=== PATIENT | female | born 1950 | race Caucasian/White ===

== ENCOUNTER 2022-06-12 09:28 | Inpatient (IN) ==
[2022-06-12] MEDS ORDERED: DILTIAZEM 50 MG/10 ML VIAL IV STA (09:56)
[2022-06-12] MEDS ORDERED: DILTIAZEM 100 MG VIAL.ADD IV ONE (09:59)
[2022-06-12] MEDS ORDERED: DILTIAZEM 25 MG/5 ML VIAL IV ONE (09:59)
[2022-06-12 10:06] LABS: Basophils % 0.2 % (0.0-0.8); Eosinophils % 0.3 % (0.00-10.9); Hematocrit 46.9 VOL% (35.7-47.0); Hemoglobin 15.2 GM/DL (12.0-16.0); Immature Granulocytes % 0.6 %; Immature Granulocytes Absolute 0.07 #; Lymphocytes # 2.1 10*3/uL (1.4-4.0); Lymphocytes % 17.3 % (21.3-54.2); Mean Corpuscular HGB Conc 32.4 GM/DL (32-36); Mean Corpuscular Volume 87.5 FL (87-102); Mean Platelet Volume 10.5 FL (9.6-12.0); Monocytes # 1.1 10*3/uL (0.11-0.8); Monocytes % 8.7 % (1.7-12.7); Neutrophils % 72.9 % (38.7-73.9); Platelet Count 285 T/CUMM (130-400); Red Blood Count 5.36 MC/CUMM (3.8-5.5); Red Cell Distribution Width 13.1 % (9.3-17.3); White Blood Count 12.2 T/CUMM (4-12)
[2022-06-12 10:15] LABS: PT Patient Result 11.5 SECS (10.1-12.1)
[2022-06-12] MEDS: DILTIAZEM INJ 100 MG in SODIUM CHLORIDE 0.9% 100 ML IV SCH (10:17)
[2022-06-12 10:34] LABS: Albumin 3.6 G/DL (3.4-5.0); Bilirubin,Total 0.9 MG/DL (0.20-1.00); Calcium 9.1 MG/DL (8.5-10.1); Osmolality,Calculated 267.4 MOS/KG (273-304); Potassium 5.1 MMOL/L (3.5-5.1); Thyroid Stimulating Hormone 3.04 uIU/ml (0.358-3.74); Total Protein 6.8 G/DL (6.4-8.2)
[2022-06-12 12:09] LABS: Bilirubin,Urine Negative (Negative); Blood, Urine Negative (Negative); Glucose,Urine (UA) Negative (Negative); Ketones,Urine Negative (Negative); Mucus,Urine Occasional /LPF (Occasional); Nitrite,Urine Negative (Negative); Protein,Urine Negative (Negative); RBC,Urine 1 /HPF (0-4); Squamous Epithelial Cell,Urine Occasional /HPF (0-10); Urine Appearance Clear (Clear); Urine Color Yellow (Yellow); Urine Urobilinogen 0.2 eU/dL (<2.0)
[2022-06-12 12:21] LABS: Barbiturates Screen,Urine Negative (Negative); Benzodiazepines Screen,Urine Negative (Negative); Cannabinoid Screen,Urine Negative (Negative); Opiate Screen,Urine Negative (Negative); Phencyclidine Screen,Urine Negative (Negative)
[2022-06-12] MEDS ORDERED: MAGNESIUM SULF RIDER 4 GM/100 ML PREMIX IV PRN (12:29)
[2022-06-12] MEDS ORDERED: hydrALAZINE 20 MG/1 ML VIAL IV PRN (12:29)
[2022-06-12] MEDS ORDERED: MAGNESIUM SULF RIDER 2 GM/50 ML PREMIX IV PRN (12:29)
[2022-06-12] MEDS ORDERED: ONDANSETRON 4 MG/2 ML VIAL IV PRN (12:29)
[2022-06-12] MEDS ORDERED: MORPHINE 2 MG/1 ML SYRINGE IV PRN (12:29)
[2022-06-12] MEDS ORDERED: ZALEPLON 5 MG CAPSULE PO PRN (12:29)
[2022-06-12] MEDS ORDERED: BISACODYL 5 MG TABLET PO PRN (12:29)
[2022-06-12] MEDS ORDERED: guaiFENesin/DM ER 600-30 MG TABLET PO PRN (12:29)
[2022-06-12] MEDS ORDERED: diphenhydrAMINE CAP 25 MG CAPSULE PO PRN (12:29)
[2022-06-12] MEDS ORDERED: DIGOXIN 0.5 MG/2 ML AMP IV ONE (12:35)
[2022-06-12] MEDS ORDERED: FUROSEMIDE 20 MG/2 ML VIAL IV STA (12:54)
[2022-06-12] MEDS ORDERED: FUROSEMIDE 40 MG/4 ML VIAL IV STA (13:01)
[2022-06-12] MEDS ORDERED: LEVALBUTEROL 0.63 MG/3 ML NEB RESP TX STA (13:02)
[2022-06-12] MEDS: DILTIAZEM 30 MG TABLET PO SCH ×2 (13:26→19:10)
[2022-06-12] MEDS: APIXABAN 5 MG TABLET PO SCH ×2 (13:26→22:00)
[2022-06-12] MEDS: LEVOFLOXACIN INJ 500 MG/100 ML PREMIX IV SCH (13:55)
[2022-06-12] MEDS: ASCORBIC ACID 500 MG TABLET PO SCH (22:00)
[2022-06-13] MEDS: DILTIAZEM 30 MG TABLET PO SCH ×5 (00:39→23:52)
[2022-06-13 04:06] LABS: Basophils % 0.1 % (0.0-0.8); Eosinophils # 0.1 10*3/uL (0.0-0.87); Eosinophils % 0.6 % (0.00-10.9); Hematocrit 40.8 VOL% (35.7-47.0); Hemoglobin 13.5 GM/DL (12.0-16.0); Immature Granulocytes % 0.4 %; Immature Granulocytes Absolute 0.04 #; Lymphocytes # 1.9 10*3/uL (1.4-4.0); Lymphocytes % 20.9 % (21.3-54.2); Mean Corpuscular HGB Conc 33.1 GM/DL (32-36); Mean Corpuscular Volume 87.4 FL (87-102); Mean Platelet Volume 10.3 FL (9.6-12.0); Monocytes # 0.9 10*3/uL (0.11-0.8); Monocytes % 9.4 % (1.7-12.7); Neutrophils % 68.6 % (38.7-73.9); Platelet Count 232 T/CUMM (130-400); Red Blood Count 4.67 MC/CUMM (3.8-5.5); White Blood Count 9.3 T/CUMM (4-12)
[2022-06-13 04:30] LABS: Calcium 8.3 MG/DL (8.5-10.1); Osmolality,Calculated 281.3 MOS/KG (273-304); Potassium 3.4 MMOL/L (3.5-5.1)
[2022-06-13 04:33] LABS: Bilirubin,Total 0.8 MG/DL (0.20-1.00); Calcium 8.6 MG/DL (8.5-10.1); Osmolality,Calculated 274.8 MOS/KG (273-304); Potassium 3.2 MMOL/L (3.5-5.1); Risk Ratio 2.68; Total Protein 5.8 G/DL (6.4-8.2); VLDL Cholesterol 17.6 MG/DL
[2022-06-13] MEDS ORDERED: POTASSIUM CHLORIDE 20 MEQ TABLET PO ONE (08:53)
[2022-06-13] MEDS: APIXABAN 5 MG TABLET PO SCH ×2 (09:09→22:08)
[2022-06-13] MEDS: PANTOPRAZOLE 40 MG TABLET PO SCH (09:09)
[2022-06-13] MEDS: ASCORBIC ACID 500 MG TABLET PO SCH ×2 (09:09→22:08)
[2022-06-13] MEDS ORDERED: AMIODARONE INJ 150 MG in DEXTROSE 5% 100 ML IV ONE (10:11)
[2022-06-13] MEDS ORDERED: AMIODARONE INJ 450 MG in DEXTROSE 5% 241 ML IV SCH (10:30)
[2022-06-13] MEDS: DILTIAZEM INJ 100 MG in SODIUM CHLORIDE 0.9% 100 ML IV SCH (11:14)
[2022-06-13] MEDS: FUROSEMIDE 20 MG TABLET PO SCH (11:37)
[2022-06-13] MEDS: SPIRONOLACTONE 25 MG TABLET PO SCH (11:37)
[2022-06-13] MEDS: METOPROLOL SUCCINATE XL 25 MG TABLET PO SCH (11:37)
[2022-06-13] MEDS ORDERED: ALBUTEROL/IPRATROPIUM 3 ML NEB RESP TX PRN (13:04)
[2022-06-13] MEDS: LEVOFLOXACIN INJ 500 MG/100 ML PREMIX IV SCH (13:48)
[2022-06-13] MEDS: AMIODARONE INJ 450 MG in DEXTROSE 5% 241 ML IV SCH ×2 (17:52→23:52)
[2022-06-14 05:19] LABS: Basophils % 0.2 % (0.0-0.8); Eosinophils # 0.3 10*3/uL (0.0-0.87); Eosinophils % 3.1 % (0.00-10.9); Hematocrit 40.5 VOL% (35.7-47.0); Immature Granulocytes % 0.6 %; Immature Granulocytes Absolute 0.05 #; Lymphocytes # 2.2 10*3/uL (1.4-4.0); Lymphocytes % 25.6 % (21.3-54.2); Mean Corpuscular HGB Conc 32.1 GM/DL (32-36); Mean Corpuscular Volume 89.6 FL (87-102); Mean Platelet Volume 10.4 FL (9.6-12.0); Monocytes # 0.8 10*3/uL (0.11-0.8); Monocytes % 9.4 % (1.7-12.7); Neutrophils % 61.1 % (38.7-73.9); Platelet Count 234 T/CUMM (130-400); Red Blood Count 4.52 MC/CUMM (3.8-5.5); Red Cell Distribution Width 13.1 % (9.3-17.3); White Blood Count 8.7 T/CUMM (4-12)
[2022-06-14 05:53] LABS: Calcium 8.4 MG/DL (8.5-10.1); Osmolality,Calculated 281.1 MOS/KG (273-304); Potassium 3.9 MMOL/L (3.5-5.1)
[2022-06-14] MEDS: DILTIAZEM 30 MG TABLET PO SCH ×3 (08:24→18:09)
[2022-06-14] MEDS: FUROSEMIDE 20 MG TABLET PO SCH (08:25)
[2022-06-14] MEDS: SPIRONOLACTONE 25 MG TABLET PO SCH (08:25)
[2022-06-14] MEDS: APIXABAN 5 MG TABLET PO SCH ×2 (08:25→20:32)
[2022-06-14] MEDS: ASCORBIC ACID 500 MG TABLET PO SCH ×2 (08:26→20:32)
[2022-06-14] MEDS: METOPROLOL SUCCINATE XL 25 MG TABLET PO SCH (08:26)
[2022-06-14] MEDS: PANTOPRAZOLE 40 MG TABLET PO SCH (08:26)
[2022-06-14] MEDS ORDERED: FUROSEMIDE 20 MG/2 ML VIAL IV ONE (09:58)
[2022-06-14] MEDS: FLUTICASONE 50 MCG NASAL SPRAY 16 GM BOTTLE BOTH NARES SCH ×2 (11:55→20:32)
[2022-06-14] MEDS: AMIODARONE 200 MG TABLET PO SCH ×2 (11:59→20:32)
[2022-06-14] MEDS ORDERED: DIGOXIN 0.5 MG/2 ML AMP IV ONE ×2 (12:15→19:30)
[2022-06-14] MEDS: AMIODARONE INJ 450 MG in DEXTROSE 5% 241 ML IV SCH (16:51)
[2022-06-14] MEDS: LEVOFLOXACIN INJ 500 MG/100 ML PREMIX IV SCH (19:25)
[2022-06-15] MEDS: DILTIAZEM 30 MG TABLET PO SCH ×2 (01:25→08:37)
[2022-06-15] MEDS: AMIODARONE INJ 450 MG in DEXTROSE 5% 241 ML IV SCH (03:30)
[2022-06-15 06:13] LABS: Basophils % 0.3 % (0.0-0.8); Eosinophils # 0.3 10*3/uL (0.0-0.87); Eosinophils % 2.8 % (0.00-10.9); Hematocrit 40.4 VOL% (35.7-47.0); Hemoglobin 13.1 GM/DL (12.0-16.0); Immature Granulocytes % 0.7 %; Immature Granulocytes Absolute 0.07 #; Lymphocytes # 2.3 10*3/uL (1.4-4.0); Lymphocytes % 21.9 % (21.3-54.2); Mean Corpuscular HGB Conc 32.4 GM/DL (32-36); Mean Platelet Volume 10.6 FL (9.6-12.0); Monocytes % 9.9 % (1.7-12.7); Neutrophils % 64.4 % (38.7-73.9); Platelet Count 239 T/CUMM (130-400); Red Blood Count 4.49 MC/CUMM (3.8-5.5); Red Cell Distribution Width 13.2 % (9.3-17.3); White Blood Count 10.5 T/CUMM (4-12)
[2022-06-15 06:46] LABS: Calcium 8.2 MG/DL (8.5-10.1); Osmolality,Calculated 274.7 MOS/KG (273-304); Potassium 3.4 MMOL/L (3.5-5.1)
[2022-06-15] MEDS ORDERED: FUROSEMIDE 40 MG TABLET PO SCH (09:00)
[2022-06-15] MEDS: FLUTICASONE 50 MCG NASAL SPRAY 16 GM BOTTLE BOTH NARES SCH ×2 (09:50→21:01)
[2022-06-15] MEDS: SPIRONOLACTONE 25 MG TABLET PO SCH (09:53)
[2022-06-15] MEDS: ASCORBIC ACID 500 MG TABLET PO SCH ×2 (09:53→20:59)
[2022-06-15] MEDS: PANTOPRAZOLE 40 MG TABLET PO SCH (09:53)
[2022-06-15] MEDS: APIXABAN 5 MG TABLET PO SCH ×2 (09:53→20:59)
[2022-06-15] MEDS: METOPROLOL SUCCINATE XL 25 MG TABLET PO SCH (09:53)
[2022-06-15] MEDS: DILTIAZEM CD 240 MG CAPSULE PO SCH (09:53)
[2022-06-15] MEDS: AMIODARONE 200 MG TABLET PO SCH ×2 (09:54→20:59)
[2022-06-15] MEDS ORDERED: POTASSIUM CHLORIDE 20 MEQ TABLET PO ONE ×2 (12:50→16:00)
[2022-06-15] MEDS ORDERED: DIGOXIN 0.5 MG/2 ML AMP IV ONE (12:54)
[2022-06-15] MEDS: FUROSEMIDE 40 MG/4 ML VIAL IV SCH ×2 (14:41→16:28)
[2022-06-15] MEDS: LEVOFLOXACIN INJ 500 MG/100 ML PREMIX IV SCH (14:43)
[2022-06-16 05:19] LABS: Basophils % 0.3 % (0.0-0.8); Eosinophils # 0.2 10*3/uL (0.0-0.87); Eosinophils % 2.4 % (0.00-10.9); Hematocrit 40.8 VOL% (35.7-47.0); Hemoglobin 13.1 GM/DL (12.0-16.0); Immature Granulocytes % 0.6 %; Immature Granulocytes Absolute 0.05 #; Lymphocytes # 2.2 10*3/uL (1.4-4.0); Lymphocytes % 24.6 % (21.3-54.2); Mean Corpuscular HGB Conc 32.1 GM/DL (32-36); Mean Corpuscular Volume 89.3 FL (87-102); Mean Platelet Volume 10.6 FL (9.6-12.0); Monocytes # 0.9 10*3/uL (0.11-0.8); Monocytes % 10.1 % (1.7-12.7); Platelet Count 242 T/CUMM (130-400); Red Blood Count 4.57 MC/CUMM (3.8-5.5); Red Cell Distribution Width 13.2 % (9.3-17.3); White Blood Count 8.9 T/CUMM (4-12)
[2022-06-16 05:33] LABS: Calcium 8.3 MG/DL (8.5-10.1); Osmolality,Calculated 277.5 MOS/KG (273-304); Potassium 3.5 MMOL/L (3.5-5.1)
[2022-06-16 05:38] LABS: Bilirubin,Direct 0.21 MG/DL (0.0-0.20); Bilirubin,Indirect 0.3 MG/DL (0.0-1.0); Bilirubin,Total 0.5 MG/DL (0.20-1.00); Total Protein 5.5 G/DL (6.4-8.2)
[2022-06-16] MEDS: DILTIAZEM CD 240 MG CAPSULE PO SCH (08:58)
[2022-06-16] MEDS: PANTOPRAZOLE 40 MG TABLET PO SCH (08:59)
[2022-06-16] MEDS: APIXABAN 5 MG TABLET PO SCH ×2 (08:59→21:57)
[2022-06-16] MEDS: ASCORBIC ACID 500 MG TABLET PO SCH ×2 (08:59→21:57)
[2022-06-16] MEDS: FUROSEMIDE 40 MG/4 ML VIAL IV SCH ×2 (08:59→15:30)
[2022-06-16] MEDS: AMIODARONE 200 MG TABLET PO SCH ×2 (08:59→21:57)
[2022-06-16] MEDS: SPIRONOLACTONE 25 MG TABLET PO SCH (08:59)
[2022-06-16] MEDS: METOPROLOL SUCCINATE XL 25 MG TABLET PO SCH (08:59)
[2022-06-16] MEDS: FLUTICASONE 50 MCG NASAL SPRAY 16 GM BOTTLE BOTH NARES SCH ×2 (09:11→21:58)
[2022-06-16] MEDS: POTASSIUM CHLORIDE 20 MEQ TABLET PO PRN ×2 (15:30→17:30)
[2022-06-16] MEDS: LEVOFLOXACIN INJ 500 MG/100 ML PREMIX IV SCH (15:30)
[2022-06-17 04:25] LABS: Basophils % 0.3 % (0.0-0.8); Eosinophils # 0.2 10*3/uL (0.0-0.87); Eosinophils % 2.5 % (0.00-10.9); Hematocrit 41.3 VOL% (35.7-47.0); Hemoglobin 13.4 GM/DL (12.0-16.0); Immature Granulocytes % 0.6 %; Immature Granulocytes Absolute 0.05 #; Lymphocytes # 2.2 10*3/uL (1.4-4.0); Lymphocytes % 28.2 % (21.3-54.2); Mean Corpuscular HGB Conc 32.4 GM/DL (32-36); Mean Corpuscular Volume 88.1 FL (87-102); Monocytes # 0.7 10*3/uL (0.11-0.8); Monocytes % 9.3 % (1.7-12.7); Neutrophils % 59.1 % (38.7-73.9); Platelet Count 223 T/CUMM (130-400); Red Blood Count 4.69 MC/CUMM (3.8-5.5); Red Cell Distribution Width 13.2 % (9.3-17.3); White Blood Count 7.7 T/CUMM (4-12)
[2022-06-17 04:48] LABS: Calcium 8.4 MG/DL (8.5-10.1); Osmolality,Calculated 278.4 MOS/KG (273-304); Potassium 3.6 MMOL/L (3.5-5.1)
[2022-06-17] MEDS: AMIODARONE 200 MG TABLET PO SCH (10:12)
[2022-06-17] MEDS: FUROSEMIDE 40 MG/4 ML VIAL IV SCH (10:12)
[2022-06-17] MEDS: PANTOPRAZOLE 40 MG TABLET PO SCH (10:13)
[2022-06-17] MEDS: SPIRONOLACTONE 25 MG TABLET PO SCH (10:13)
[2022-06-17] MEDS: ASCORBIC ACID 500 MG TABLET PO SCH (10:13)
[2022-06-17] MEDS: FLUTICASONE 50 MCG NASAL SPRAY 16 GM BOTTLE BOTH NARES SCH (10:14)
[2022-06-17] MEDS: APIXABAN 5 MG TABLET PO SCH (10:14)
[2022-06-17] MEDS: METOPROLOL SUCCINATE XL 25 MG TABLET PO SCH (10:14)
[2022-06-17] MEDS: DILTIAZEM CD 240 MG CAPSULE PO SCH (10:27)
[2022-06-17 11:46] VITALS: BP 125/54
== END 2022-06-17 14:30 | disposition home or self-care (01) | DRG 308 ==
LOC: N.ED 09:28 → N.EDINP 12:28 → N.TELEN 06-13 12:03
PROVIDERS: ADMIT Internal Medicine Cardiovascular Disease; ATTEND Internal Medicine Cardiovascular Disease